=== PATIENT | female | born 1970 | race Caucasian/White ===

== ENCOUNTER 2024-01-04 10:19 | Outpatient (CLI) | payer OTHER, SELFPAY | END 2024-01-04 10:20 | disposition home or self-care (01) | PROVIDERS: PCP Family Medicine; Visit Provider Family Medicine | DX: Z13.1 Encounter for screening for diabetes mellitus (principal); E78.2 Mixed hyperlipidemia | CPT/HCPCS: 80048; 80061 ==

== ENCOUNTER 2025-04-24 10:50 | Outpatient (CLI) | payer OTHER, SELFPAY | END 2025-04-24 10:51 | disposition home or self-care (01) | PROVIDERS: PCP Family Medicine; Visit Provider Family Medicine | DX: Z00.00 Encounter for general adult medical examination without abnormal findings (principal); E78.00 Pure hypercholesterolemia, unspecified | CPT/HCPCS: 80048; 80061; 84439; 84443 ==